=== PATIENT | male | born 1990 | race Caucasian/White ===

== ENCOUNTER 2016-08-22 08:54 | Day surgery (SDC) | END 2016-08-22 16:16 | disposition home or self-care (01) | DX: K29.60 Other gastritis without bleeding (principal); K21.9 Gastro-esophageal reflux disease without esophagitis; K44.9 Diaphragmatic hernia without obstruction or gangrene; F41.9 Anxiety disorder, unspecified | CPT/HCPCS: 43239; 88305; Z7610 ==